=== PATIENT | male | born 1940 | race Hispanic/Latino ===

== ENCOUNTER 2017-02-09 07:44 | Day surgery (SDC) | payer MEDICARE, BC ==
[2017-01-28 09:23] VITALS: BMI 25.5
[2017-02-09] MEDS ORDERED: Propofol 10 mg/ml Inj (20 ML) ONE (08:20)
[2017-02-09] MEDS ORDERED: Midazolam 2 MG/2 ML VIAL ONE (08:22)
[2017-02-09] MEDS ORDERED: Rocuronium 10 mg/ml (5 ml) ONE (08:22)
[2017-02-09] MEDS ORDERED: Lidocaine 1% Inj (20ml) ONE (09:10)
[2017-02-09] MEDS ORDERED: Bupivacaine 0.5% Inj(30mL) ONE (09:10)
[2017-02-09] MEDS ORDERED: Lactated Ringer's 1,000 ML IV SCH (09:22)
[2017-02-09] MEDS ORDERED: Morphine 2 mg/ml ISec IVP PRN ×2 (09:22→09:26)
[2017-02-09] MEDS ORDERED: Neostigmine Methylsulfate 3mg/3ml Syringe IV ONE (10:07)
[2017-02-09] MEDS ORDERED: Glycopyrrolate 0.2 mg/ml (2ml vial) ONE (10:08)
[2017-02-09] MEDS ORDERED: Liquid Adhesive TOP ONE (10:22)
--- NOTE | 2017-02-09 10:49 | PCM.SURG1 ---
Surgeon's Initial Post Op Note - Surgeon's Notes Surgeon: Bereket Merchandising Coordinator: PGY3 Type of Anesthesia: General Endo Pre-Operative Diagnosis: R inguinal hernia Operative Findings: R indirect inguinal hernia, reducible Post-Operative Diagnosis: R indirect inguinal hernia Operation Performed: R inguinal hernia repair with mesh Specimen/Specimens Removed: N/A Estimated Blood Loss: EBL {In ML}: 5 Blood Products Given: N/A Drains Used: No Drains Post-Op Condition: Good Date of Surgery/Procedure: 02/09/17 Time of Surgery/Procedure: 09:25
[2017-02-09] MEDS ORDERED: Oxycodone/Acetaminophen 5/325 mg Tab PO ONE (10:50)
[2017-02-09 11:27] VITALS: O2SAT 98
[2017-02-09] MEDS ORDERED: Oxycodone/Acetaminophen 5/325 mg Tab ONE (11:32)
[2017-02-09 12:02] VITALS: RESP 18; TEMP 97.8
--- NOTE | 2017-02-09 12:45 | OP ---
PROCEDURE DATE: 02/09/2017 PREOPERATIVE DIAGNOSIS: Right inguinal hernia. POSTOPERATIVE DIAGNOSIS: Right inguinal hernia. OPERATION PERFORMED: Right inguinal herniorrhaphy. SURGEON: Dr. Cuba. SALES ENGINEER ACCOUNT MANAGER: The resident. DESCRIPTION OF PROCEDURE: In the operating room, the patient was identified by name, number, procedu re, laterality, my consent and my giana, his name, number and birthday. The area had been prepped. P erioperative antibiotics were given. After the successful timeout, a right inguinal incision was mad e through the skin and subcutaneous tissues lying within the folds. This was dissected down using ca utery and blunt dissection to the external oblique with a bleeder that was cauterized after being cla mped. The external oblique was identified. The external ring was identified. The external oblique was then cleaned, opened. On the undersurface it was cleaned and . The cord and hernia was circumscribed at the pubic tubercle including the vas. We did not readily identify the vas, althoug h it was subsequently found to be into the cord. Anteromedially, the sac was identified and pulled u p and serially from surrounding tissues identifying the vas at several points. Cautery was used to separate it nicely. The large hernia was then circumferentially dissected. It was tentativ chelsea put back in the abdomen. It was still a large defect. It was twisted and placed back. An extra -large atrium patch was placed. It was sutured in place x 2. The mesh was then placed around the co rd after it was somewhat lightened, taking out a lipoma. It was sutured on the pubic tubercle. The mesh was then sutured around the cord very nicely. It was tamped down to a neutral position and the incision was closed with serial layers of Vicryl for the external oblique. The Vivi's was closed f ollowed by subcutaneous stitch and a subcuticular stitch. A light pressure dressing was applied. Th e patient was taken to recovery room in good condition after sponge and needle counts declared correc t using Dermabond. Douglas Cuba MD cc: [id number] TT: 02/09/2017 12:44:46 mn
[2017-02-09 16:06] VITALS: BP 126/72; PULSE 60
== END 2017-02-09 16:05 | disposition home or self-care (01) ==
LOC: SDS 07:44
PROVIDERS: ATTEND Surgery
DX: K40.90 Unilateral inguinal hernia, without obstruction or gangrene, not specified as recurrent (principal); D17.6 Benign lipomatous neoplasm of spermatic cord
CPT/HCPCS: 49505; C1781; J0690; J2001; J2250; J2270; J2405; J2704; J2710; J2765; J3010; J7120 ×2

== ENCOUNTER 2019-01-24 20:27 | Emergency (ER) | payer MEDICARE, BC ==
[2019-01-24 21:07] VITALS: TEMP 98.3; BMI 25.7
[2019-01-24] MEDS ORDERED: Glucagon Recombinant 1 mg Inj IV STA (21:56)
[2019-01-24 22:34] LABS: BASO # 0.07 K/mm3 (0.0-2.0); BASO % 1.5 % (0.0-3.0); EOS # 0.1 (0.0-0.7); EOS % 1.7 % (1.5-5.0); HEMOGLOBIN 12.5 g/dL (14.0-18.0); LYMPH # 1.4 (1.2-3.4); LYMPH % 28.8 % (22.0-35.0); MEAN CELL VOLUME 86.1 fl (80.0-105.0); MEAN CORPUSCULAR HGB CONC 32.5 g/dl (31.0-37.0); MEAN PLATELET VOLUME 9.3 fl (7.0-11.0); MONO # 1.2 (0.1-0.6); MONO % 25.2 % (1.0-6.0); PLATELET COUNT 217 10^3/uL (120.0-450.0); RBC 4.47 10^6/uL (3.5-6.1); RED CELL DISTRIBUTION WIDTH 15.8 % (11.5-14.5); WHITE BLOOD COUNT 4.7 10^3/uL (4.5-11.0)
[2019-01-24 22:43] LABS: INR 1.04; PROTHROMBIN TIME 11.5 SECONDS (9.4-12.5)
[2019-01-24 22:44] LABS: ALB/GLOB RATIO 1.2 (1.1-1.8); ALBUMIN 4.7 g/dL (3.0-4.8); CALCIUM 9.9 mg/dL (8.4-10.5)
--- NOTE | 2019-01-24 22:45 | ED PDOC ---
Arrival/HPI - General Chief Complaint: ENT Problem Time Seen by Provider: 01/24/19 21:13 Historian: Patient - History of Present Illness Narrative History of Present Illness (Text): 01/24/19 22:42 78 year old male, presents to the emergency department for evaluation of something stuck in throat. Patient informs he was eating dinner when he felt a pierre lott get stuck in throat. Patient states he was able to cough one up but s till feels one stuck. Patient points to the anterior area of the neck where he feels it. Patient informs attempting to drink water to pass it but it would come back up. Patient informs he has had similar symptoms in the past for about 4 years, with intermittent issues swallowing, but has never seen ENT or GI for workup. Patient denies any chest pain, shortness of breath, abdominal pain, or any other complaint. PMD: Dr Nieves Time/Duration: Prior to Arrival Symptom Onset: Sudden Symptom Course: Unchanged Activities at Onset: Light, Eating Context: Home Past Medical History - Provider Review Nursing Documentation Reviewed: Yes Primary Care Physician: Ever Nieves MD - Infectious Disease Hx of Infectious Diseases: None - Cardiac Hx Pacemaker: No - Neurological Hx Paralysis: No - Hematological/Oncological Hx Blood Transfusions: No - Musculoskeletal/Rheumatological Hx Musculoskeletal Disorders: Yes - Psychiatric Hx Emotional Abuse: No Hx Physical Abuse: No Hx Substance Use: No - Anesthesia Hx Anesthesia Reactions: No Hx Malignant Hyperthermia: No - Suicidal Assessment Feels Threatened In Home Enviroment: No Family/Social History - Physician Review Nursing Documentation Reviewed: Yes Family/Social History: No Known Family HX Smoking Status: Never Smoked Hx Alcohol Use: No Hx Substance Use: No Allergies/Home Meds Allergies/Adverse Reactions: Allergies No Known Allergies Allergy (Verified 01/24/19 21:06) Home Medications: Home Meds Medication Instructions Recorded Confirmed Meloxicam [Mobic] 15 mg PO DAILY 01/28/17 02/09/17 Multivitamin [Daily Amy] 1 tab PO DAILY 01/28/17 02/09/17 oxyCODONE/Acetaminophen [Percocet 1 tab PO Q6H PRN 02/09/17 02/09/17 5/325 mg Tab] Review of Systems - Physician Review All systems were reviewed & negative as marked: Yes - Review of Systems Constitutional: absent: Fevers Eyes: Normal ENT: Normal Respiratory: absent: SOB Cardiovascular: absent: Chest Pain Gastrointestinal: absent: Abdominal Pain Genitourinary Male: Normal Musculoskeletal: Neck Pain (discomfort, feels something lodged in throat) Skin: Normal Neurological: Normal Endocrine: Normal Hemo/Lymphatic: Normal Psychiatric: Normal Physical Exam Vital Signs Reviewed: Yes Vital Signs Temp Pulse Resp BP Pulse Ox 01/24/19 21:06 98.3 F 72 18 142/75 98 Temperature: Afebrile Blood Pressure: Normal Pulse: Regular Respiratory Rate: Normal Appearance: Positive for: Well-Appearing, Non-Toxic, Comfortable Pain Distress: None Mental Status: Positive for: Alert and Oriented X 3 - Systems Exam Head: Present: Atraumatic, Normocephalic Pupils: Present: PERRL Extroacular Muscles: Present: EOMI Conjunctiva: Present: Normal Mouth: Present: Moist Mucous Membranes. No: Drooling, Other (speech normal) Neck: Present: Normal Range of Motion Respiratory/Chest: Present: Clear to Auscultation, Good Air Exchange. No: Respiratory Distress, Accessory Muscle Use Cardiovascular: Present: Regular Rate and Rhythm, Normal S1, S2. No: Murmurs Abdomen: No: Tenderness, Distention, Peritoneal Signs Back: Present: Normal Inspection Upper Extremity: Present: Normal Inspection. No: Cyanosis, Edema Lower Extremity: Present: Normal Inspection. No: Edema Neurological: Present: GCS=15, CN II-XII Intact, Speech Normal Skin: Present: Warm, Dry, Normal Color. No: Rashes Psychiatric: Present: Alert, Oriented x 3, Normal Insight, Normal Concentration Medical Decision Making ED Course and Treatment: 01/24/19 22:49 Impression: 78 year old male presents with foreign object in throat. Plan: -- CT Neck Soft tissue -- CBC -- Glucagon -- Reassess and disposition Prior Visits: Notes and results from previous visits were reviewed. Progress Notes: - RAD Interpretation Radiology Orders: 01/24/19 21:55 NECK SOFT TISSUE W/O CONTRAST [CT] Stat - Medication Orders Current Medication Orders: Discontinued Medications Glucagon (Glucagen Diagnostic Kit) 1 mg IV STAT STA Stop: 01/24/19 21:57 Last Admin: 01/24/19 22:28 Dose: 1 mg eMAR Start Stop Document 01/24/19 22:28 KV (Rec: 04/29/19 22:29 KV [id number]) Intravenous Solution Start Date 01/24/19 Start Time 22:28 End Date 01/24/19 End time 22:29 Total Infusion Time 1 - Scribe Statement The provider has reviewed the documentation as recorded by the Alkaibkaitlin Hernandez Provider Scribe Attestation: All medical record entries made by the Scribe were at my direction and personally dictated by me. I have reviewed the chart and agree that the record accurately reflects my personal performance of the history, physical exam, medical decision making, and the department course for this patient. I have also personally directed, reviewed, and agree with the discharge instructions and disposition. Disposition/Present on Arrival - Present on Arrival History of DVT/PE: No History of Uncontrolled Diabetes: No Urinary Catheter: No History of Decub. Ulcer: No History Surgical Site Infection Following: None - Disposition Referrals: Ever Nieves MD [Primary Care Provider] - Follow up with primary
[2019-01-24 22:49] VITALS: RESP 16; O2SAT 99
--- NOTE | 2019-01-24 22:54 | ED PDOC ---
Arrival/HPI - General Chief Complaint: ENT Problem Time Seen by Provider: 01/24/19 21:13 Historian: Patient - History of Present Illness Narrative History of Present Illness (Text): 01/24/19 22:51 78 year old male, presents to the emergency department for evaluation of something stuck in throat. Patient informs he was eating dinner when he felt a pierre lott get stuck in throat. Patient states he was able to cough one up but s till feels one stuck. Patient points to the anterior area of the neck where he feels it. Patient informs attempting to drink water to pass it but it would come back up. Patient informs he has had similar symptoms in the past for about 4 years, with intermittent issues swallowing, but has never seen ENT or GI for workup. Patient denies any chest pain, shortness of breath, abdominal pain, or any other complaint. Time/Duration: Prior to Arrival Symptom Onset: Sudden Symptom Course: Unchanged Activities at Onset: Light, Eating Context: Home Past Medical History - Provider Review Nursing Documentation Reviewed: Yes Primary Care Physician: Ever Nieves MD - Infectious Disease Hx of Infectious Diseases: None - Cardiac Hx Pacemaker: No - Neurological Hx Paralysis: No - Hematological/Oncological Hx Blood Transfusions: No - Musculoskeletal/Rheumatological Hx Musculoskeletal Disorders: Yes - Psychiatric Hx Emotional Abuse: No Hx Physical Abuse: No Hx Substance Use: No - Anesthesia Hx Anesthesia Reactions: No Hx Malignant Hyperthermia: No - Suicidal Assessment Feels Threatened In Home Enviroment: No Family/Social History - Physician Review Nursing Documentation Reviewed: Yes Family/Social History: No Known Family HX Smoking Status: Never Smoked Hx Alcohol Use: No Hx Substance Use: No Allergies/Home Meds Allergies/Adverse Reactions: Allergies No Known Allergies Allergy (Verified 01/24/19 21:06) Home Medications: Home Meds Medication Instructions Recorded Confirmed Meloxicam [Mobic] 15 mg PO DAILY 01/28/17 02/09/17 Multivitamin [Daily Amy] 1 tab PO DAILY 01/28/17 02/09/17 oxyCODONE/Acetaminophen [Percocet 1 tab PO Q6H PRN 02/09/17 02/09/17 5/325 mg Tab] Review of Systems - Review of Systems Constitutional: Normal. absent: Fevers Eyes: Normal ENT: Normal Respiratory: Normal. absent: SOB Cardiovascular: Normal. absent: Chest Pain Gastrointestinal: Normal. absent: Abdominal Pain Genitourinary Male: Normal Musculoskeletal: Neck Pain (Something stuck in throat) Skin: Normal Neurological: Normal Endocrine: Normal Hemo/Lymphatic: Normal Psychiatric: Normal Physical Exam Vital Signs Reviewed: Yes Vital Signs Temp Pulse Resp BP Pulse Ox 01/24/19 22:47 71 16 150/83 99 01/24/19 21:06 98.3 F 72 18 142/75 98 Temperature: Afebrile Blood Pressure: Normal Pulse: Regular Respiratory Rate: Normal Appearance: Positive for: Well-Appearing, Non-Toxic, Comfortable Pain Distress: None Mental Status: Positive for: Alert and Oriented X 3 - Systems Exam Head: Present: Atraumatic, Normocephalic Pupils: Present: PERRL Extroacular Muscles: Present: EOMI Conjunctiva: Present: Normal Mouth: Present: Moist Mucous Membranes, Other (speaking in full senences). No: Drooling Neck: Present: Normal Range of Motion Respiratory/Chest: Present: Clear to Auscultation, Good Air Exchange. No: Respiratory Distress, Accessory Muscle Use Cardiovascular: Present: Regular Rate and Rhythm, Normal S1, S2. No: Murmurs Abdomen: No: Tenderness, Distention, Peritoneal Signs Back: Present: Normal Inspection Upper Extremity: Present: Normal Inspection. No: Cyanosis, Edema Lower Extremity: Present: Normal Inspection. No: Edema Neurological: Present: GCS=15, CN II-XII Intact, Speech Normal Skin: Present: Warm, Dry, Normal Color. No: Rashes Psychiatric: Present: Alert, Oriented x 3, Normal Insight, Normal Concentration Medical Decision Making ED Course and Treatment: 01/24/19 22:54 Impression: 78 year old male presents with foreign object in throat. Plan: -- CT Neck Soft tissue -- CBC -- Glucagon -- Reassess and disposition Prior Visits: Notes and results from previous visits were reviewed. Progress Notes: 01/24/19 23:00 On reevaluation, patient reports improvement of symptoms, denies any FB sensation to his throat, states that after he was given the glucagon, he started to feel better and he actually felt the food that was stuck in his throat going down his chest to his stomach and feels much improved now. On exam, patient remains awake alert and oriented 3 in no acute distress. Speaking in full sentences, no drooling. CT results still pending. Labs reviewed creat 2.2, noted to be elevated from prior labs, in 2017 creat was 1.8. 01/24/19 23:33 CT Head without Intravenous Contrast. CLINICAL HISTORY: HEADACHE HTN TECHNIQUE: Axial computed tomography images of the head/brain without intravenous contrast. 1196.00 mGy-cm COMPARISON: None provided. FINDINGS: BRAIN Right lobe of the thyroid is larger than left. No definite focal thyroid lesions identified on the noncontrast study. If indicated, this could be further evaluated with thyroid sonogram. VENTRICLES: No hydrocephalus. ORBITS: The orbits are unremarkable. SINUSES AND MASTOIDS: There is a mucous retention cyst or polyp within the left maxillary sinus. There is scattered mucosal thickening of the ethmoid air cells bilaterally. BONES: There are mild to moderate multilevel degenerative spine changes. SOFT TISSUES: Unremarkable. MISCELLANEOUS: There is straightening of the cervical lordosis. The nasopharynx and oropharynx appear symmetric. The parotid and submandibular glands appear relatively symmetric. The study is significantly limited without IV contrast. Mild biapical scarring. The pre glottic, glottic and subglottic regions appear symmetric. IMPRESSION: 1. Sinus disease as described. 2. There is straightening of the cervical lordosis. There are mild to moderate multilevel degenerative spine changes. 3. Right lobe of the thyroid is larger than left. No definite focal thyroid lesions identified on the noncontrast study. If indicated, this could be further evaluated with thyroid sonogram. 4. The study is significantly limited without IV contrast. 5. Mild biapical scarring. 6. Additional, incidental findings as described. 01/24/19 23:45 On reevaluation, patient still states that he feels well and feels comfortable going home. He was able to tolerate 3 cups of water and had no difficulty swallowing. CT results discussed with the patient. Patient notified of increase in his creatinine level and advised that he needs to follow this up with his pmd. Advised to follow up with primary care physician and GI referral in 1-2 days without fail. Return to the emergency room at any time for any new or worsening symptoms. Patient states he fully agrees with and understands discharge instructions. States that he agrees with the plan and disposition. Verbalized and repeated discharge instructions and plan. I have given the patient opportunity to ask any additional questions. - Lab Interpretations Lab Results: PT 11.5 SECONDS (9.4-12.5) 01/24/19 22:30 INR 1.04 01/24/19 22:30 APTT 33.0 Seconds (26.9-38.3) 01/24/19 22:30 Total Bilirubin 0.6 mg/dL (0.2-1.3) 01/24/19 22:30 AST 29 U/L (17-59) 01/24/19 22:30 ALT 14 U/L (7-56) 01/24/19 22:30 Alkaline Phosphatase 64 U/L (38-126) 01/24/19 22:30 Total Protein 8.7 g/dL (5.8-8.3) H 01/24/19 22:30 Albumin 4.7 g/dL (3.0-4.8) 01/24/19 22:30 Globulin 4.0 gm/dL 01/24/19 22:30 Albumin/Globulin Ratio 1.2 (1.1-1.8) 01/24/19 22:30 - RAD Interpretation Radiology Orders: 01/24/19 21:55 NECK SOFT TISSUE W/O CONTRAST [CT] Stat - Medication Orders Current Medication Orders: Discontinued Medications Glucagon (Glucagen Diagnostic Kit) 1 mg IV STAT STA Stop: 01/24/19 21:57 Last Admin: 01/24/19 22:28 Dose: 1 mg eMAR Start Stop Document 01/24/19 22:28 KV (Rec: 01/24/19 22:29 KV [id number]) Intravenous Solution Start Date 01/24/19 Start Time 22:28 End Date 01/24/19 End time 22:29 Total Infusion Time 1 - PA / CHANGE MANAGEMENT COORDINATOR / Resident Statement MD/ has reviewed & agrees with the documentation as recorded. - Scribe Statement The provider has reviewed the documentation as recorded by the Jeff Hernandez Provider Scribe Attestation: All medical record entries made by the Scribe were at my direction and personal ly dictated by me. I have reviewed the chart and agree that the record accurately reflects my personal performance of the history, physical exam, medical decision making, and the department course for this patient. I have also personally directed, reviewed, and agree with the discharge instructions and disposition. Disposition/Present on Arrival - Present on Arrival Any Indicators Present on Arrival: No History of DVT/PE: No History of Uncontrolled Diabetes: No Urinary Catheter: No History of Decub. Ulcer: No History Surgical Site Infection Following: None - Disposition Have Diagnosis and Disposition been Completed?: Yes Diagnosis: Dysphagia Disposition: HOME/ ROUTINE Disposition Time: 23:45 Patient Plan: Discharge Patient Problems: Current Active Problems Problem Status Onset Dysphagia Acute Condition: IMPROVED Discharge Instructions (ExitCare): Dysphagia (DC) Additional Instructions: Thank you for letting us take care of you today. You were treated for dysphagia. The emergency medical care you received today was directed at your acute symptoms. Return to the Emergency Department if your symptoms worsen, do not improve, or if you have any other problems. Please contact your doctor in 2 days for re-evaluation and follow up / or call one of the physicians/clinics you have been referred to that are listed on the Patient Visit Information form that is included in your discharge packet. Bring any paperwork you were given at discharge with you along with any medications you are taking to your follow up visit. Our treatment cannot replace ongoing medical care by a primary care provider (PCP) outside of the emergency department. Thank you for allowing the [facility] team to be part of your care today. Your CT scan of the neck: Right lobe of the thyroid is larger than left. No definite focal thyroid lesions identified on the noncontrast study. A Radiologist will review the ED reading if any change in treatment is needed we will contact you. Your blood work shows a mild elevation in your creatinine of 2.2, please follow this up with your doctor. Referrals: Ever Nieves MD [Primary Care Provider] - Follow up with primary Ethel Boogie MD [Medical Doctor] - Follow up with primary Forms: [employer] (Macedonian)
[2019-01-24 22:56] LABS: BASOPHIL 2 % (0.0-1.0); EOSINOPHIL 3 % (0.0-3.0); LYMPHOCYTE 33 % (22.0-35.0); MONOCYTE 18 % (1.0-6.0); NEUTROPHIL 44 % (50.0-70.0); PLATELET ESTIMATE NORMAL (NORMAL)
[2019-01-24 23:35] VITALS: BP 135/79; PULSE 65
--- NOTE | 2019-01-25 08:33 | CT ---
Date of service: 01/24/2019 PROCEDURE: CT NECK WITHOUT CONTRAST HISTORY: FB food in throat, can't swallow COMPARISON: None available. TECHNIQUE: CT of the neck without intravenous contrast. Coronal and sagittal reformats generated. Radiation dose: Total exam DLP = 470.08 mGy-cm. This CT exam was performed using one or more of the following dose reduction techniques: Automated exposure control, adjustment of the mA and/or kV according to patient size, and/or use of iterative reconstruction technique. FINDINGS: Unenhanced imaging of the suprahyoid neck is unremarkable as imaged although the anterior and middle portions of the oral cavity are obscured by extreme heart artifact related to dental hardware. Nasopharynx and oropharynx appear unremarkable as well as the posterior oral cavity and tongue including the tongue base. Parapharyngeal soft tissues in tonsillar pillars appear unremarkable. Hypopharynx is also unremarkable as well as the larynx including the vocal cords. Perform sinuses and valleculae appear symmetric. Visualized trachea is mildly ectatic with esophagus moderately distended with low density debris in its proximal segment. In the upper chest at the level of the aortic arch, fluid is mildly distending the esophagus. No retained radiodense foreign bodies appreciated although lucent piece of retained food or other debris is not excluded. GLANDS: Parotid and submandibular glands unremarkable. Heterogeneous density seen throughout normal sized thyroid gland with underlying nodules not excluded. Follow-up thyroid ultrasonography advised on elective basis. LYMPH NODES: Numerous shotty 2 and level 3 jugular digastric lymph nodes are identified and also mildly appreciated at the submental and submandibular triangles bilaterally. No grossly enlarged lymph nodes appreciable. CERVICAL SPINE: No fracture or focal lesion. Multilevel cervical spondylosis appreciate the mid and inferior levels. There is degeneration of the C1-2 articulation as well. OTHER FINDINGS: Limited fibrotic changes seen the right greater than left pulmonary apices with small polyp persist identified at the dependent left maxillary sinus versus mucoid material. Extensive bilateral ethmoid sinusitis. IMPRESSION: 1. Sarj-ba-pbcyjohl distention of the upper esophagus is appreciate with low-density material. Air-fluid level is seen at the upper thoracic esophageal segment near the termination of the examination. A partially obstructing process is not excluded. No retained radiodense foreign body identified. Consider follow-up chest CT or esophagram for added characterization of the mid and distal esophagus. 2. Heterogeneous density throughout the thyroid gland is identified with underlying nodules not excluded follow-up thyroid ultrasonography recommended on elective basis. 3. Incidental sinusitis as discussed above. Discordant preliminary report from [facility] (Impression No. 1), 01/24/2019, 10:42 p.m.. Findings were discussed with ER physician Dr. Shirley apparently the patient has had this ongoing issue for at least 4 years and was able to drink 4 cups of water prior to being discharged from the emergency department overnight consider follow-up additional imaging on elective basis including chest CT or esophagram or both.
== END 2019-01-25 00:08 | disposition home or self-care (01) ==
LOC: ED 20:27
DX: R13.10 Dysphagia, unspecified (principal)
CPT/HCPCS: 70490; 80053; 83735; 85025; 85610; 85730; 96374; 99284; J1610